=== PATIENT | female | born 1980 | race Caucasian/White ===

== ENCOUNTER → 2021-07-24 | Emergency (ER) | payer OTHER ==
[~2021-07-24] VITALS: Ht 167.6 cm; Wt 68.9 kg
[~2021-07-24] MED LIST: PRENATABS FA T1 EACH PO
== END | disposition home or self-care (01) ==
LOC: ER 19:11
DX: S60.455A Superficial foreign body of left ring finger, initial encounter (principal); X58.XXXA Exposure to other specified factors, initial encounter; Y93.9 Activity, unspecified; Y92.9 Unspecified place or not applicable

== ENCOUNTER 2023-05-11 20:35 | Emergency (ER) | payer OTHER ==
[~2023-05-11] VITALS: Ht 162.6 cm; Wt 59.0 kg
== END 2023-05-11 22:22 | disposition home or self-care (01) ==
LOC: ER 20:35
DX: R53.81 Other malaise (principal); G43.009 Migraine without aura, not intractable, without status migrainosus; Z88.6 Allergy status to analgesic agent

== ENCOUNTER 2023-07-29 07:43 | Emergency (ER) | payer OTHER ==
[~2023-07-29] VITALS: Ht 144.8 cm; Wt 53.9 kg
[2023-07-29] MEDS ORDERED: 0.9 % SODIUM CHLORIDE 1,000 ML IV STA (09:20)
[2023-07-29] MEDS ORDERED: FAMOtidine 10 MG/ML (4ML VIAL) IV STA (09:20)
[2023-07-29] MEDS ORDERED: PROMETHAZINE HCL 50 MG/ML AMPUL IM STA (09:21)
[2023-07-29] MEDS ORDERED: METOCLOPRAMIDE HCL 10 MG in DEXTROSE 5 % IN WATER 50 ML IV ONE (09:30)
[2023-07-29 10:25] LABS: URINE APPEARANCE Clear; URINE BILIRRUBIN Negative (NEGATIVE); URINE BLOOD Negative; URINE COLOR Yellow; URINE GLUCOSE Negative (NEGATIVE); URINE LEUKOCYTE Negative; URINE NITRATE Negative; URINE PROTEIN Negative (NEGATIVE); URINE UROBILINOGEN 0.2 E.U./dl
[2023-07-29 10:26] LABS: URINE BACTERIA 8.8 uL (0.0-1933); URINE RBC 5.4 uL (0.0-20.8)
[2023-07-29 10:28] LABS: HEMATOCRIT 37.4 % (36.0-45.00); HEMOGLOBIN 12.9 g/dL (12.0-15.00); MEAN CELL VOLUME 92.7 fL (80.00-100.00); MEAN CORPUSCULAR HGB CONC 34.6 g/dl (32.0-36.0); PLATELET COUNT 311 K/uL (150-450); RED BLOOD COUNT 4.03 M/uL (4.00-6.00)
[2023-07-29 10:34] LABS: URINE EPITHELIAL CELLS 1.3 uL (0.0-38.8); URINE WBC 1.2 uL (0.0-23.2)
[2023-07-29 10:41] LABS: CALCIUM 9.1 mg/dL (8.5-10.1); CREATININE SERUM 0.62 mg/dL (0.55-1.02); GFR 105.56; POTASSIUM 3.76 mEq/L (3.5-5.1)
== END 2023-07-29 12:46 | disposition home or self-care (01) ==
LOC: ER 07:44
PROVIDERS: General Practice
DX: K80.20 Calculus of gallbladder without cholecystitis without obstruction (principal); R10.9 Unspecified abdominal pain; K58.8 Other irritable bowel syndrome; Z88.8 Allergy status to other drugs, medicaments and biological substances; K21.9 Gastro-esophageal reflux disease without esophagitis; F41.8 Other specified anxiety disorders

== ENCOUNTER 2023-08-20 07:00 | Day surgery (SDC) | payer OTHER ==
[2023-08-11 11:39] LABS: PH,URINE 5.5 (5.0-8.0); URINE APPEARANCE Clear; URINE BILIRRUBIN Negative (NEGATIVE); URINE BLOOD Negative; URINE COLOR Yellow; URINE GLUCOSE Negative (NEGATIVE); URINE LEUKOCYTE Negative; URINE NITRATE Negative; URINE PROTEIN Negative (NEGATIVE)
[2023-08-11 11:43] LABS: URINE BACTERIA 248.2 uL (0.0-1933); URINE EPITHELIAL CELLS 58.5 uL (0.0-38.8); URINE WBC 7.1 uL (0.0-23.2)
[2023-08-11 11:54] LABS: HEMATOCRIT 38.4 % (36.0-45.00); HEMOGLOBIN 13.2 g/dL (12.0-15.00); MEAN CELL VOLUME 91.9 fL (80.00-100.00); MEAN CORPUSCULAR HEMOGLOBIN 31.5 pg (27.00-32.0); MEAN CORPUSCULAR HGB CONC 34.3 g/dl (32.0-36.0); PLATELET COUNT 339 K/uL (150-450); RED BLOOD COUNT 4.18 M/uL (4.00-6.00); RED CELL DISTRIBUTION WIDTH 12.9 % (11.5-14.5)
[2023-08-11 11:58] LABS: INR 1.01; PARTIAL THROMBOPLASTIN TIME 32.5 SECONDS (22.0-34.0); PROTHROMBIN TIME 10.6 SECONDS (9.0-11.5)
[2023-08-11 12:24] LABS: ALBUMIN 4.1 gm/dL (3.4-5.0); BILIRUBIN TOTAL 0.48 mg/dL (0.3-1.2); CALCIUM 9.6 mg/dL (8.5-10.1); CREATININE SERUM 0.59 mg/dL (0.55-1.02); GFR 111.78; GLOBULINA 3.9 G/DL (2.4-3.5); POTASSIUM 4.17 mEq/L (3.5-5.1)
[2023-08-20] MEDS ORDERED: FAMOTIDINE/PF 20 MG/2 ML VIAL IV ONE (12:30)
[2023-08-20] MEDS ORDERED: FAMOTIDINE/PF 20 MG/2 ML VIAL ONE (12:36)
[2023-08-20] MEDS ORDERED: CEFAZOLIN SODIUM 1,000 MG VIAL ONE (12:39)
[2023-08-20] MEDS ORDERED: CEFAZOLIN SODIUM 1,000 MG VIAL IV SCH (13:15)
== END 2023-08-20 18:40 | disposition home or self-care (01) ==
LOC: CIR.AMB 07:00
PROVIDERS: ATTEND Surgery
DX: K80.10 Calculus of gallbladder with chronic cholecystitis without obstruction (principal); Z88.8 Allergy status to other drugs, medicaments and biological substances

== ENCOUNTER 2024-09-21 15:02 | Outpatient (CLI) | payer OTHER | END 2024-09-21 15:08 | disposition home or self-care (01) | LOC: MAMO-SONO 15:02 | PROVIDERS: ATTEND Internal Medicine | DX: Z12.31 Encounter for screening mammogram for malignant neoplasm of breast (principal); Z12.39 Encounter for other screening for malignant neoplasm of breast; Z13.9 Encounter for screening, unspecified ==

== ENCOUNTER 2024-10-08 13:28 | Outpatient (CLI) | payer OTHER | END 2024-10-08 13:38 | disposition home or self-care (01) | LOC: SONOGRAMA 13:28 | PROVIDERS: ATTEND Internal Medicine | DX: E04.1 Nontoxic single thyroid nodule (principal); E03.9 Hypothyroidism, unspecified ==

== ENCOUNTER 2024-10-18 10:44 | Outpatient (CLI) | payer OTHER | END 2024-10-18 10:47 | disposition home or self-care (01) | LOC: SONOGRAMA 10:44 | PROVIDERS: ATTEND Pathology Anatomic Pathology & Clinical Pathology | DX: D34 Benign neoplasm of thyroid gland (principal); E07.89 Other specified disorders of thyroid; E04.1 Nontoxic single thyroid nodule ==